=== PATIENT | male | born 1980 | race Caucasian/White ===

== ENCOUNTER 2018-10-14 07:30 | Inpatient (IN) | payer MEDICAID ==
[2018-11-14] MEDS ORDERED: cefOXitin 2 GM in Sodium Chloride 0.9% 100 ML IV ONE (06:09)
[2018-11-14] MEDS ORDERED: Celecoxib 200 MG Cap PO ONE (06:10)
[2018-11-14] MEDS ORDERED: Scopolamine 1.5 MG Transdermal Patch TOP ONE (06:10)
[2018-11-14] MEDS ORDERED: Gabapentin 300 MG Cap PO ONE (06:10)
[2018-11-14] MEDS ORDERED: Acetaminophen 500 MG Tab PO ONE (06:10)
[2018-11-14] MEDS ORDERED: cefOXitin 2 GM Vial ONE (06:52)
[2018-11-14] MEDS ORDERED: Dexamethasone 4 MG/ML SDV ONE (07:08)
[2018-11-14] MEDS ORDERED: Ondansetron 4 MG/2 ML SDV ONE (07:08)
[2018-11-14] MEDS ORDERED: Succinylcholine 200 MG/10 ML MDV ONE (07:08)
[2018-11-14] MEDS ORDERED: Propofol 200 MG/20 ML SDV ONE (07:08)
[2018-11-14] MEDS ORDERED: Neostigmine Methylsulfate 1 MG/ML 5 ML Syringe ONE (07:08)
[2018-11-14] MEDS ORDERED: Rocuronium 50 MG/5 ML Vial ONE (07:08)
[2018-11-14] MEDS ORDERED: Glycopyrrolate 0.2 MG/ML 5 ML MDV ONE (07:08)
[2018-11-14] MEDS ORDERED: cefOXitin 2 GM in Sodium Chloride 0.9% 50 ML IV ONE (07:15)
[2018-11-14] MEDS: Dextrose 5%-Lactated Ringers 1,000 ML IV SCH ×3 (07:22→22:35)
[2018-11-14] MEDS ORDERED: Lidocaine 2% 100 MG/5 ML Syringe IVPUSH SCH (08:00)
[2018-11-14] MEDS ORDERED: Ketamine 50 MG in Sodium Chloride 0.9% 49.5 ML IV SCH (08:00)
[2018-11-14] MEDS ORDERED: Lidocaine 0.4%/D5W 2 GM/500 ML BAG IV SCH (08:00)
[2018-11-14] MEDS ORDERED: Ketamine 500 MG/5 ML MDV IV SCH (08:00)
[2018-11-14] MEDS ORDERED: Lactated Ringers 1,000 ML ONE (08:07)
[2018-11-14] MEDS ORDERED: CHECK SCOPOLAMINE PATCH TOP SCH (09:00)
[2018-11-14] MEDS ORDERED: fentaNYL 100 MCG/2 ML SDV IVPUSH ONE (09:09)
[2018-11-14] MEDS ORDERED: hydrOXYzine HCl 100 MG/2 ML SDV IM ONE (09:10)
[2018-11-14] MEDS ORDERED: Ondansetron 4 MG/2 ML SDV IVPUSH PRN (10:27)
[2018-11-14] MEDS ORDERED: Labetalol 20 MG/4 ML Syringe IVPUSH PRN (10:39)
[2018-11-14] MEDS ORDERED: diphenhydrAMINE 50 MG/ML SDV IVPUSH PRN (10:39)
[2018-11-14] MEDS ORDERED: hydrOXYzine HCl 100 MG/2 ML SDV IM PRN (10:39)
[2018-11-14] MEDS ORDERED: Metoclopramide 10 MG/2 ML SDV IVPUSH PRN (10:39)
[2018-11-14] MEDS ORDERED: HYDROmorphone 0.5 MG/0.5 ML Syringe IVPUSH PRN (10:39)
[2018-11-14 11:03] LABS: HEMOGLOBIN A1C 5.8 % (4.5-6.2)
[2018-11-14] MEDS: HYDROmorphone 1 MG/ML Syringe IV PRN ×4 (11:26→21:21)
[2018-11-14] MEDS: cefOXitin 2 GM in Sodium Chloride 0.9% 50 ML IV SCH ×2 (13:47→19:29)
[2018-11-14] MEDS ORDERED: Pantoprazole 40 MG Vial IVPUSH SCH (14:00)
[2018-11-14] MEDS: Gabapentin 250 MG/5 ML Solution ML 470 ML Bottle PO SCH ×2 (14:01→21:19)
[2018-11-14] MEDS: Acetaminophen Soln 650 MG/20.3 ML UD Cup PO SCH ×2 (14:02→19:29)
[2018-11-14] MEDS ORDERED: MVI, Adult with Vitamin K 10 ML, Thiamine 200 MG, Chromium/Copper/Mang/Selen/Zn 1 ML in... IV SCH ×4 (16:00)
[2018-11-14] MEDS: Heparin Sodium 5,000 Units/ML Vial SUBCUT SCH (16:12)
[2018-11-15] MEDS: Heparin Sodium 5,000 Units/ML Vial SUBCUT SCH ×4 (01:37→23:39)
[2018-11-15] MEDS: Acetaminophen Soln 650 MG/20.3 ML UD Cup PO SCH ×4 (01:37→19:26)
[2018-11-15] MEDS ORDERED: Iopamidol 612 MG/ML 50 ML SDV PO STA (01:41)
--- NOTE | 2018-11-15 02:26 | CRLCR ---
INDICATION: Status post sleeve gastrectomy. Evaluate for leak. COMPARISON: None. FINDINGS/IMPRESSION: Two images were obtained, the 1st immediately after swallowing contrast and the 2nd after a 15 minutes delay. Contrast passes through the distal esophagus, into the stomach, and into the duodenum and proximal jejunum without obstruction. No definite extravasated contrast is seen to suggest a leak. Dictated by Tacos Erwin MD @ 11/15/2018 2:24:10 AM Dictated by: Tacos Erwin MD @ 11/15/2018 02:24:44 (Electronically Signed)
[2018-11-15] MEDS: cefOXitin 2 GM in Sodium Chloride 0.9% 50 ML IV SCH ×4 (03:38→21:00)
[2018-11-15] MEDS: Dextrose 5%-Lactated Ringers 1,000 ML IV SCH (05:22)
[2018-11-15] MEDS: Celecoxib 200 MG Cap PO SCH (07:11)
[2018-11-15] MEDS: Gabapentin 250 MG/5 ML Solution ML 470 ML Bottle PO SCH ×3 (08:59→21:25)
[2018-11-15] MEDS: SCOPOLAMINE PATCH CHECK TOP SCH (09:00)
[2018-11-15] MEDS ORDERED: Dextrose 5%-Lactated Ringers 1,000 ML IV SCH (09:15)
[2018-11-15] MEDS: HYDROmorphone 2 MG Tab PO PRN ×3 (09:46→19:28)
[2018-11-15] MEDS: Hydrochlorothiazide 25 MG Tab PO SCH (10:02)
[2018-11-15] MEDS: Lisinopril 20 MG Tab PO SCH (10:03)
[2018-11-15] MEDS: amLODIPine 5 MG Tab PO SCH (10:03)
[2018-11-15] MEDS: Loratadine 10 MG Tab PO SCH (11:27)
[2018-11-15] MEDS ORDERED: MVI, Adult with Vitamin K 10 ML, Thiamine 200 MG, Chromium/Copper/Mang/Selen/Zn 1 ML in... IV SCH ×4 (16:00)
[2018-11-15] MEDS ORDERED: Pantoprazole 40 MG Delayed-Release Granules 1 Packet PO SCH (16:30)
[2018-11-15] MEDS ORDERED: Ondansetron 4 MG Tab.DIS PO PRN (21:01)
[2018-11-16] MEDS: Acetaminophen Soln 650 MG/20.3 ML UD Cup PO SCH ×2 (02:52→08:39)
[2018-11-16] MEDS: HYDROmorphone 2 MG Tab PO PRN ×2 (07:16→12:30)
[2018-11-16] MEDS: Heparin Sodium 5,000 Units/ML Vial SUBCUT SCH (08:39)
[2018-11-16] MEDS: Celecoxib 200 MG Cap PO SCH (08:39)
[2018-11-16] MEDS: Loratadine 10 MG Tab PO SCH (08:40)
[2018-11-16] MEDS: SCOPOLAMINE PATCH CHECK TOP SCH (08:44)
[2018-11-16] MEDS ORDERED: Cyanocobalamin (Vitamin B12) 1,000 MCG/ML SDV IM ONE (09:00)
[2018-11-16] MEDS: Gabapentin 250 MG/5 ML Solution ML 470 ML Bottle PO SCH (10:50)
[2018-11-16] MEDS: Hydrochlorothiazide 25 MG Tab PO SCH (10:52)
[2018-11-16] MEDS: Lisinopril 20 MG Tab PO SCH (10:52)
[2018-11-16] MEDS: amLODIPine 5 MG Tab PO SCH (10:53)
--- NOTE | 2018-11-16 11:08 | PN ---
DATE OF SERVICE: 11/15/2018 The patient has been afebrile with stable vital signs. No major problems were noted overnight. Oral intake is fairly good. Upper GI x-ray looks good. We will go up to step-2 diet today, switch over to oral pain medication exclusively, and restart his usual oral medications. He will likely be ready for discharge home tomorrow. Buddy Anaya MD /[id number]
--- NOTE | 2018-11-17 09:47 | DISCH ---
ADMISSION DIAGNOSES: 1. Morbid obesity, BMI is 44. 2. Depression. 3. Hypertension. 4. Long-term use of opioid analgesic for back pain. DISCHARGE DIAGNOSES: Laparoscopic sleeve gastrectomy, liver biopsy, repair of diaphragmatic hernia, excision of mediastinal lipoma for morbid obesity, hepatomegaly, diaphragmatic hernia, and mediastinal lipoma. Date of surgery: 11/14/2018. HISTORY: Jerod Brown is a 37-year-old male with longstanding history of morbid obesity. After preoperative evaluation and discussion of possible risks and the possible complications, he wished to proceed with surgical procedure. HOSPITAL COURSE: Jerod had his surgery on 11/14/2018. He had no operative complications. On postoperative day #1, his upper GI was normal. He was started on a step 2 gastric bypass diet without cereal. His pain was well managed. His activity was good. Vital signs remained stable and he was able to be discharged to home on postoperative day #2. PHYSICAL EXAMINATION: GENERAL: Jerod is a 37-year-old male. VITAL SIGNS: Height is 6 feet, weight is 324 pounds. BMI is 44, TPR 96.9, 68, 16, blood pressure is 133/80. HEENT: Negative. NECK: Supple. HEART: Regular rate and rhythm. LUNGS: Clear. ABDOMEN: Incisions look good. 4 x 4 over MITRA drain sites. Sutures intact. Abdominal binder is on. EXTREMITIES: Without peripheral edema. DISPOSITION: Discharged to home. CONDITION: Stable and improving. FOLLOWUP: Followup appointment with Wilma Barbosa PA-C, on 11/23/2018 at 11 a.m. HOME MEDICATIONS: Tylenol 650 mg oral q.6 hours p.r.n. pain, Celebrex 200 mg p.o. daily #14, Zofran ODT 4 mg every 4 hours p.r.n. nausea #30. He is to resume his home medication of lisinopril/hydrochlorothiazide 20/25 two tablets oral daily, loratadine 10 mg oral daily, amlodipine 5 mg oral daily. He is to discontinue taking the [place] on a scheduled basis, take p.r.n. DIET: Step 2 gastric bypass diet with no cereal for 30 days until 12/14/2018. Drink 8 to 10 glasses of water a day. ACTIVITY: No lifting greater than 10 pounds for 2 weeks. Driving: Do not drive for 1 week. May shower. DISCHARGE INSTRUCTIONS: Notify provider if any fever, increased pain, nausea, or vomiting. Keep site clean and dry. Wear abdominal binder for 2 weeks and then as tolerated. Use incentive spirometer 10 times every hour while awake.
--- NOTE | 2018-11-19 10:16 | OR ---
DATE OF PROCEDURE: 11/14/2018 SURGEON: Buddy Anaya MD PREOPERATIVE DIAGNOSIS: Morbid obesity. POSTOPERATIVE DIAGNOSES: 1. Morbid obesity. 2. Marked hepatomegaly. 3. Paraesophageal diaphragmatic hernia. 4. Mediastinal lipoma. OPERATIVE PROCEDURES: 1. Laparoscopic sleeve gastrectomy (27673). 2. Efe-Cut needle liver biopsy (60158). 3. Repair of paraesophageal diaphragmatic hernia (09454). 4. Excision of mediastinal lipoma (15808). ANESTHESIA: General. ACTIVITY LEADER: Wilma Barbosa PA-C. INDICATIONS FOR PROCEDURE: This is a 37-year-old presenting with longstanding morbid obesity and increasingly significant weight-related comorbidities. After preoperative evaluation and discussion, he wished to proceed with sleeve gastrectomy. Potential risks of the procedure including bleeding, infection, injury to the underlying viscera, possible leaks from the staple line were all reviewed, along with the remote possibility of cardiopulmonary, septic, or hemorrhagic complications leading to , and the patient wishes to proceed. DETAILS OF PROCEDURE: The patient was taken to the operating room and placed in a supine position. After general endotracheal anesthesia was induced, he was converted to a lithotomy position, and the abdomen was prepped and draped. A 15 cm inferior and 5 cm left of the xiphoid process, a transverse incision was made, the peritoneal cavity entered under direct vision with an Optiview trocar inflated to 15 mmHg pressure with CO2. Laparoscope was then inserted. No underlying trocar insertion site injuries were seen. Following this, 5 additional trocars were placed across the upper and mid abdomen. Bilateral transversus abdominis plane blocks were then placed, and the patient was noted to have marked hepatomegaly. The liver biopsies were obtained from the left lobe of the liver with Efe-Cut needle biopsy instrument. Any bleeding from the biopsy sites was controlled with electrocautery. At this point, the liver was retracted anteriorly. The patient was noted to have moderate- sized paraesophageal diaphragmatic hernia, and the peritoneum overlying this was incised and reflected downward. During the course of the dissection, roughly a ping-pong ball-sized mediastinal lipoma was encountered, which was excised to facilitate more adequate repair of the diaphragmatic hernia, which was accomplished with a series of 0 Ethibond sutures reinforced with PTFE pledgets. The greater curvature of the omentum was divided away from the stomach with Harmonic scalpel, this extended up to and through the short gastric vessels including the highest and posterior short gastric vessels. The left isacc was well skeletonized at this point, and the omentum was then divided from the original point now distally to 0.2 cm proximal to the pylorus. Some of attachments posteriorly were freed up, and at that point, the initial staple line was marked out with electrocautery beginning 2 cm proximal to the pylorus and extending underneath the incisura angularis with care taken to avoid overtightening of the staple line at that point. First three firings of the lauren were reinforced with NATALIA black loads. At that point, a 32-Ugandan suction tube was passed orally per Anesthesia into the stomach and manipulated along the lesser curvature of the stomach, from there into the antrum. This was pulled up snugly against the lesser curvature and suction applied. The remainder of the sleeve gastrectomy was then accomplished with a series of lauren and using the reinforced black and reinforced purple loads. Upon completion of the staple line, blocks of the appliance appeared to be intact. We did take some care to veer slightly away from the esophagogastric junction and the uppermost staple line to avoid stapling on the esophagus itself. The staple line was then reinforced with fibrin sealant along its length with focusing on the area of the esophagogastric junction. The esophagogastric junction also had a figure-of- eight stitch of 0 Ethibond suture had been placed to reinforce that area and omentum was then tacked up using some 3-0 Vicryl stitches along the length of the sleeve gastrectomy with the area being irrigated with antibiotic-containing saline solution and the suction catheter was taken off suction and then had interacted into a sleeve gastrectomy while the pylorus was compressed with clamp. With distention, no bubbles or other signs of leak were identified. There did appear to be good hemostasis. At that point, the gastrectomy specimen was delivered through the left lateral trocar site and at that point, no further problems noted. Nahid-Buckley drain was taken out through the left lateral trocar site and positioned against the esophagogastric junction from there into the splenic fossa. The trocars were then sequentially removed, and the peritoneal cavity deflated, and the incisions were closed with 4-0 Vicryl skin stitch, and drains affixed with some 4-0 Vicryl stitch as well. The patient was taken to the recovery room in satisfactory condition. Physician registered dental assistant rda, Wilma Barbosa, played an essential role in assisting in this case, helping to position the patient, retract structures as needed, as well as suturing and cutting sutures when indicated. Her presence improved patient safety and decreased operative time. Buddy Anaya MD /[id number]
== END 2018-11-16 12:55 | disposition home or self-care (01) | DRG 621 ==
LOC: JP.MS 11-14 05:35 → JP.SDS 11-14 05:35 → EDSTATUS 11-14 07:15 → JP.2SS 11-14 10:24
PROVIDERS: ADMIT Surgery; ATTEND Surgery
PROC: 0DB64Z3 Excision of Stomach, Percutaneous Endoscopic Approach, Vertical (ICD-10-PCS; principal; 2018-11-14)
PROC: 0FB24ZX Excision of Left Lobe Liver, Percutaneous Endoscopic Approach, Diagnostic (ICD-10-PCS; 2018-11-14)
PROC: 0BQT4ZZ Repair Diaphragm, Percutaneous Endoscopic Approach (ICD-10-PCS; 2018-11-14)
PROC: 0WBC4ZZ Excision of Mediastinum, Percutaneous Endoscopic Approach (ICD-10-PCS; 2018-11-14)
DX: E66.01 Morbid (severe) obesity due to excess calories (principal); F32.9 Major depressive disorder, single episode, unspecified; I10 Essential (primary) hypertension; R16.0 Hepatomegaly, not elsewhere classified; K44.9 Diaphragmatic hernia without obstruction or gangrene; D17.79 Benign lipomatous neoplasm of other sites; Z79.891 Long term (current) use of opiate analgesic; Z87.891 Personal history of nicotine dependence; Z68.42 Body mass index [BMI] 45.0-49.9, adult
CPT/HCPCS: 36415; 74240; 82962; 83036; 83735; 84100; 86850; 86900; 86901; 88304; 88307; 88313; A9270-GY; C9113; J0171; J0330; J0694; J1100; J1170; J1644; J2001; J2405; J2704; J2710; J2795; J3010; J3410; J3411; J3420; J3490; J7042; J7050; J7120; Q9967

== ENCOUNTER 2018-11-17 11:51 | Emergency (ER) | payer MEDICAID ==
[2018-11-17] MEDS ORDERED: Sodium Chloride 0.9% 10 ML Syringe FLUSH PRN ×2 (13:57→14:04)
[2018-11-17] MEDS ORDERED: Sodium Chloride 0.9% 100 ML IV ONE (14:04)
[2018-11-17] MEDS ORDERED: Iopamidol 755 Mg/ML 100 ML Bottle IV SCH (14:15)
--- NOTE | 2018-11-17 15:35 | CRLCT ---
INDICATION: Abdominal pain TECHNIQUE: CT abdomen and pelvis acquired with IV contrast. 100 mL of Isovue 370 administered. COMPARISON: None available FINDINGS: Liver: Mild steatosis with slight sparing adjacent to the gallbladder. Spleen: Splenomegaly measuring 14.3 cm craniocaudally. Pancreas: Unremarkable. Gallbladder and bile ducts: Apparent small gallbladder sludge. Adrenal glands: Unremarkable. Kidneys: Unremarkable. GI tract: Post sleeve gastrectomy changes with mild adjacent stranding, probably postsurgical. No bowel obstruction. A normal appendix. Colonic wall thickening, involving the ascending, transverse and proximal to mid descending colon, consistent with colitis. Left colonic diverticulosis without gross diverticulitis. Vascular structures: Mild atherosclerotic changes. Lymph nodes: A borderline portacaval lymph node, nonspecific. Multiple small sub centimeter right lower quadrant mesenteric lymph nodes could be reactive. Miscellaneous: Tiny fluid in the posteroinferior pelvis. No loculated fluid collection. No free intraperitoneal air. Small foci of gas in the anterior abdominal and pelvic wall, probably residual postsurgical. Pelvic Organs: Incompletely distended bladder. Grossly unremarkable prostate. Bones: Degenerative changes in the lower lumbar spine. IMPRESSION: Colonic wall thickening consistent with colitis. Correlate for infectious and inflammatory etiologies. Left colonic diverticulosis without diverticulitis. Post sleeve gastrectomy changes. No loculated fluid collection. Tiny pelvic free fluid. Other findings as above. Dictated by Randell Ricardo MD @ 11/17/2018 3:35:20 PM Please note that all CT scans at this facility use dose modulation, iterative reconstruction, and/or weight-based dosing when appropriate to reduce radiation dose to as low as reasonably achievable. Dictated by: Randell Ricardo MD @ 11/17/2018 15:35:26 (Electronically Signed)
--- NOTE | 2018-11-17 15:46 | CRLCT ---
INDICATION: Left chest pain TECHNIQUE: CT chest pulmonary PE protocol acquired with IV contrast. 100 mL of Isovue 370 administered COMPARISON: None FINDINGS: Cardiovascular structures: Suboptimal timing of the contrast bolus. Limited evaluation of some distal segmental and subsegmental pulmonary arteries. No large, central or proximal segmental pulmonary embolus. Normal cardiac size. An ectatic ascending aorta measuring 3.6 cm. Mediastinum and wilmer: No mass or adenopathy. Lungs: Subsegmental atelectasis in the left lower lobe. 3 mm anterior right pulmonary nodules on images 63 and 66, statistically post inflammatory in a patient of this age. Pleura and pericardium: A small left pleural effusion. Chest wall and axilla: No mass or adenopathy. Bones: No significant findings. IMPRESSION: No CT evidence of a large, central or proximal segmental pulmonary embolus. A small left pleural effusion with mild adjacent atelectasis. Dictated by Randell Ricardo MD @ 11/17/2018 3:44:06 PM Please note that all CT scans at this facility use dose modulation, iterative reconstruction, and/or weight-based dosing when appropriate to reduce radiation dose to as low as reasonably achievable. Dictated by: Randell Ricardo MD @ 11/17/2018 15:45:27 (Electronically Signed)
--- NOTE | 2018-11-17 16:07 | EDM.PDOC ---
ED HPI GENERAL MEDICAL PROBLEM - General Chief Complaint: Fever Stated Complaint: ABD PAIN, POST SURGERY Time Seen by Provider: 11/17/18 13:41 Source of Information: Reports: Patient History Limitations: Reports: No Limitations - History of Present Illness INITIAL COMMENTS - FREE TEXT/NARRATIVE: This man had a gastric sleeve placed on Wednesday. He did well but last pm began haveing a fever up to 101 deg. Today he has pain in the left shoulder with deep breathing or any movements. No SOB. Left Upper Abdomen Pain Score (Numeric/FACES): 7 - Related Data Allergies Allergy/AdvReac Type Severity Reaction Status Date / Time No Known Allergies Allergy Verified 11/17/18 12:53 Home Meds: Home Meds Lisinopril/Hydrochlorothiazide [Lisinopril-Hctz 20-25 mg Tab] 2 tab PO DAILY 02/16 [History] Loratadine 10 mg PO DAILY 11/10/18 [History] amLODIPine Besylate [Amlodipine Besylate] 5 mg PO DAILY 11/10/18 [History] Acetaminophen [Tylenol] 650 mg PO Q6H cup 11/16/18 [Rx] Celecoxib [CeleBREX] 200 mg PO DAILY@0800 cap 11/16/18 [Rx] Ondansetron [Zofran ODT] 4 mg PO Q4H PRN #30 tab.dis 11/16/18 [Rx] Past Medical History HEENT History: Reports: Allergic Rhinitis, Impaired Vision Other HEENT History: wears glasses Cardiovascular History: Reports: Hypertension Respiratory History: Reports: Sleep Apnea Genitourinary History: Reports: None Musculoskeletal History: Reports: Back Pain, Chronic, Fracture Neurological History: Reports: None Psychiatric History: Reports: Psych Hospitalization(s), Suicide Attempt Endocrine/Metabolic History: Reports: Obesity/BMI 30+ - Infectious Disease History Infectious Disease History: Reports: Chicken Pox - Past Surgical History HEENT Surgical History: Reports: Oral Surgery Cardiovascular Surgical History: Reports: None Respiratory Surgical History: Reports: None GI Surgical History: Reports: Bariatric Procedure Male Surgical History: Reports: Vasectomy Endocrine Surgical History: Reports: None Neurological Surgical History: Reports: Discectomy, Laminectomy, Lumbar Spine Musculoskeletal Surgical History: Reports: Other (See Below) Other Musculoskeletal Surgeries/Procedures:: right ankle surgery Dermatological Surgical History: Reports: None Social & Family History - Family History HEENT: Reports: Macular Degeneration Cardiac: Reports: Arrhythmia Respiratory: Reports: COPD Musculoskeletal: Reports: Back pain, Chronic Endocrine/Metabolic: Reports: Diabetes, type II, IDDM Oncologic: Reports: Breast, Metastatic, Ovarian, Skin, Other (See Below) Other Oncologic Family History: stomach - Tobacco Use Smoking Status *Q: Never Smoker Second Hand Smoke Exposure: No - Caffeine Use Caffeine Use: Reports: Coffee - Alcohol Use Days Per Week of Alcohol Use: 0 - Recreational Drug Use Recreational Drug Use: No ED ROS GENERAL - Review of Systems Review Of Systems: See Below Constitutional: Reports: Fever HEENT: Reports: No Symptoms Respiratory: Reports: Pleuritic Chest Pain Cardiovascular: Reports: No Symptoms Endocrine: Reports: No Symptoms GI/Abdominal: Reports: No Symptoms : Reports: No Symptoms Musculoskeletal: Reports: No Symptoms Skin: Reports: No Symptoms ED EXAM, GENERAL - Physical Exam Exam: See Below Exam Limited By: No Limitations General Appearance: Alert, Obese Eye Exam: Bilateral Eye: PERRL Nose: Normal Inspection Throat/Mouth: Normal Oropharynx Head: Atraumatic Neck: Normal Inspection Respiratory/Chest: Lungs Clear Cardiovascular: Regular Rate, Rhythm, No Murmur GI/Abdominal: Soft, Tender (expected tenderness) Extremities: Normal Inspection Neurological: Alert, Oriented, No Motor/Sensory Deficits, Abnormal Reflexes Skin Exam: Warm Course - Vital Signs Last Recorded V/S: Last Vital Signs Temp 36.6 C 11/17/18 12:51 Pulse 88 11/17/18 12:51 Resp 16 11/17/18 12:51 BP 112/69 11/17/18 12:51 Pulse Ox 97 11/17/18 12:51 - Orders/Labs/Meds Orders: Active Orders 24 hr Category Date Time Status EKG Documentation Completion [RC] ASDIRECTED Care 11/17/18 13:58 Active Iopamidol [Isovue-370 (76%)] Med 11/17/18 14:15 Active 100 ml IV . DIRECTED Sodium Chloride 0.9% [Saline Flush] Med 11/17/18 13:57 Active 10 ml FLUSH ASDIRECTED PRN Sodium Chloride 0.9% [Saline Flush] Med 11/17/18 14:04 Active 10 ml FLUSH ONETIME PRN Saline Lock Insert [OM.PC] Urgent Oth 11/17/18 13:56 Ordered EKG 12 Lead [EK] Urgent Ther 11/17/18 13:56 Ordered Medication Orders Iopamidol (Isovue-370 (76%)) 100 ml IV . DIRECTED ANNA Last Admin: 11/17/18 14:58 Dose: 100 ml Sodium Chloride (Saline Flush) 10 ml FLUSH ASDIRECTED PRN PRN Reason: Keep Vein Open Sodium Chloride (Saline Flush) 10 ml FLUSH ONETIME PRN PRN Reason: PER RADIOLOGY PROTOCOL Last Admin: 11/17/18 14:58 Dose: 10 ml Labs: Laboratory Tests 11/17/18 11/17/18 Range/Units 14:02 14:02 WBC 11.1 H (4.5-11.0) K/uL RBC 5.07 (4.30-5.90) M/uL Hgb 15.4 H (12.0-15.0) g/dL Hct 45.3 (40.0-54.0) % MCV 89 (80-98) fL MCH 30 (27-31) pg MCHC 34 (32-36) % Plt Count 217 (150-400) K/uL Neut % (Auto) 86 H (36-66) % Lymph % (Auto) 7 L (24-44) % Mitchell % (Auto) 7 H (2-6) % Eos % (Auto) 1 L (2-4) % Baso % (Auto) 0 (0-1) % Sodium 137 L (140-148) mmol/L Potassium 3.0 L (3.6-5.2) mmol/L Chloride 100 (100-108) mmol/L Carbon Dioxide 25 (21-32) mmol/L Anion Gap 15.0 H (5.0-14.0) mmol/L BUN 13 (7-18) mg/dL Creatinine 1.0 (0.8-1.3) mg/dL Est Cr Clr Drug Dosing 108.86 mL/min Estimated GFR (MDRD) > 60 (>60) Glucose 113 H (74-106) mg/dL Calcium 8.4 L (8.5-10.1) mg/dL Total Bilirubin 0.8 (0.2-1.0) mg/dL AST 14 L (15-37) U/L ALT 26 (12-78) U/L Alkaline Phosphatase 73 (46-116) U/L Total Protein 7.2 (6.4-8.2) g/dL Albumin 3.3 L (3.4-5.0) g/dL Globulin 3.9 H (2.3-3.5) g/dL Albumin/Globulin Ratio 0.9 L (1.2-2.2) Meds: Medications Generic Name Dose Route Start Last Admin Trade Name Freq PRN Reason Stop Dose Admin Iopamidol 100 ml 11/17/18 14:15 11/17/18 14:58 Isovue-370 (76%) IV 100 ml . DIRECTED ANNA Administration Sodium Chloride 10 ml 11/17/18 13:57 Saline Flush FLUSH ASDIRECTED PRN Keep Vein Open Sodium Chloride 10 ml 11/17/18 14:04 11/17/18 14:58 Saline Flush FLUSH 10 ml ONETIME PRN Administration PER RADIOLOGY PROTOCOL Discontinued Medications Generic Name Dose Route Start Last Admin Trade Name Freq PRN Reason Stop Dose Admin Sodium Chloride 100 mls @ 4 mls/sec 11/17/18 14:04 11/17/18 14:59 Normal Saline IV 11/17/18 14:05 4 mls/sec ONETIME ONE Administration - Radiology Interpretation Free Text/Narrative:: small left pleural effusion and atellectasis. Some evidence of colitis. - Re-Assessments/Exams Free Text/Narrative Re-Assessment/Exam: 11/17/18 16:[address] Anaya. He rec Toradol but pt already on Celebrex. Rx Percocet Departure - Departure Time of Disposition: 16:04 Disposition: Home, Self-Care 01 Condition: Fair Clinical Impression: Pleural effusion, Pleurodynia - Discharge Information Referrals: PCP,None [Primary Care Provider] - Forms: ED Department Discharge Additional Instructions: Instead of plain tylenol you may take Percocet 5/325 (#15) 1 or 2 every 4-6 hours as needed for pain. Not that this med already has tylenol in it. It can cause sedation and impair driving and can cause addition if abused. See Dr Anaya next week. Return to the ER if needed. - My Orders Last 24 Hours: My Active Orders 11/17/18 13:56 Saline Lock Insert [OM.PC] Urgent EKG 12 Lead [EK] Urgent 11/17/18 13:57 Sodium Chloride 0.9% [Saline Flush] 10 ml FLUSH ASDIRECTED PRN 11/17/18 13:58 EKG Documentation Completion [RC] ASDIRECTED 11/17/18 14:04 Sodium Chloride 0.9% [Saline Flush] 10 ml FLUSH ONETIME PRN 11/17/18 14:15 Iopamidol [Isovue-370 (76%)] 100 ml IV . DIRECTED - Assessment/Plan Last 24 Hours: My Active Orders 11/17/18 13:56 Saline Lock Insert [OM.PC] Urgent EKG 12 Lead [EK] Urgent 11/17/18 13:57 Sodium Chloride 0.9% [Saline Flush] 10 ml FLUSH ASDIRECTED PRN 11/17/18 13:58 EKG Documentation Completion [RC] ASDIRECTED 11/17/18 14:04 Sodium Chloride 0.9% [Saline Flush] 10 ml FLUSH ONETIME PRN 11/17/18 14:15 Iopamidol [Isovue-370 (76%)] 100 ml IV . DIRECTED
== END 2018-11-17 16:22 | disposition home or self-care (01) ==
LOC: JP.ED 11:51
DX: J90 Pleural effusion, not elsewhere classified (principal); I10 Essential (primary) hypertension; E66.9 Obesity, unspecified; Z98.84 Bariatric surgery status
CPT/HCPCS: 36415; 71275; 74177; 80053; 85025; 93005; 99284; J7030; Q9967